=== PATIENT | male | born 1940 | race Caucasian/White ===

== ENCOUNTER 2018-03-06 11:34 | Observation (INO) | payer MEDICARE, OTHER ==
[2018-03-06] MEDS ORDERED: MECLIZINE HCL 12.5 MG TAB ONE (12:27)
[2018-03-06] MEDS ORDERED: TETANUS & DIPHTHERIA TOX,ADULT 0.5 ML VIAL ONE (12:28)
[2018-03-06] MEDS ORDERED: ONDANSETRON 4 MG/2 ML VIAL ONE (12:30)
[2018-03-06 12:54] LABS: Absolute Lymphocytes (CBC) 0.7 K/uL (0.7-4.9); Absolute Monocytes 0.5 K/uL (0.1-1.3); Absolute Neutrophil 5.9 K/uL (1.8-8.0); Basophils % 0.6 % (0-1.3); Eosinophils % 0.1 % (0-4.4); Lymphocytes % 9.6 % (15.3-44.8); MCH 32.6 pg (27.0-35.0); MCV 99.1 fL (80-100); Monocytes % 6.5 % (3.3-12.3); RBC Red Blood Cell Count 3.93 M/uL (4.33-5.43)
--- NOTE | 2018-03-06 13:18 | RAD REPORT ---
EXAM DESCRIPTION: CT - Head C Spine Mpr Wo Con - 03/06/2018 1:06 pm CLINICAL HISTORY: Syncope. Head and neck injury status post fall. Head and neck pain COMPARISON: None. TECHNIQUE: Computed axial tomography of the head and cervical spine was obtained. Sagittal and coronal reconstruction was performed. All CT scans are performed using dose optimization technique as appropriate and may include automated exposure control or mA/KV adjustment according to patient size. FINDINGS: An intracranial bleed is not seen. The ventricles are normal in caliber. An extra-axial fl uid collection is not noted.Fluid within the visualized sinuses and mastoids is not seen A cervical fracture is not visualized. No dislocation is noted. Loss of the normal lordosis may be se condary to muscle spasm. IMPRESSION: No acute intracranial abnormality is seen. A cervical fracture is not visualized. If the patient continues to have symptoms to suggest intracra nial /spinal cord pathology then MRI would be recommended
[2018-03-06 13:19] LABS: Protime INR 1.11
[2018-03-06 13:26] LABS: Bicarbonate 27 mEq/L (21-31); Glucose Level 142 mg/dL (65-120); Lipase 17 U/L (22-51); Potassium 4.1 mEq/L (3.6-5.0); Sodium Level 141 mEq/L (135-145)
[2018-03-06 13:32] LABS: ALT/SGPT 21 IU/L (10-60); AST/SGOT 27 IU/L (10-42); Alkaline Phosphatase 60 IU/L (42-121); BUN Blood Urea Nitrogen 23 mg/dL (6-20); Bilirubin Direct < 0.1 mg/dL (0-0.2); Bilirubin Total 0.3 mg/dL (0.3-1.2); Protein, Total 6.8 g/dL (6.0-8.3)
[2018-03-06 13:33] LABS: Albumin 3.6 g/dL (3.2-5.5); Creatine Phosphokinase 99 IU/L (22-269)
[2018-03-06 13:34] LABS: CKMB Creatine Kinase MB 2.3 ng/ml (0.3-4.0)
--- NOTE | 2018-03-06 13:35 | RAD REPORT ---
EXAM DESCRIPTION: Mike Single View03/06/2018 1:14 pm CLINICAL HISTORY: Chest pain COMPARISON: 2011 FINDINGS: The catrachito are mildly prominent. Otherwise, the lungs appear clear of acute infiltrate. The heart is normal size IMPRESSION: Mild prominence of the catrachito probably representing confluence of pulmonary vessels. Mild lymphadenopathy can also have this appearance. It is recommended that patient have a followup PA and lateral chest series in 6 weeks for re-evaluation.
--- NOTE | 2018-03-06 13:53 | EDPHYS ---
Physician Documentation [facility] Name: Jimbo Van Age: 77 yrs Sex: Male : 1940 Arrival Date: 03/06/2018 Time: 11:36 Bed 3 Private MD: ED Physician Galindo Araujo HPI: 03/06 12:19 This 77 yrs old Male presents to ER via EMS with complaints of Fall Injury. thomas 12:19 Details of fall: The patient fell from an upright position, while walking. Onset: The thomas symptoms/episode began/occurred this morning. Associated injuries: The patient sustained injury to the head, neck injury. Severity of symptoms: At their worst the symptoms were mild, moderate, in the emergency department the symptoms are unchanged. The patient has experienced similar episodes in the past, a few times. Historical: - Allergies: 11:37 Demerol; ae1 11:37 Cardizem; ae1 - Home Meds: 11:59 Pradaxa 150 mg oral cap 1 cap 2 times per day [Active]; enalapril maleate 20 mg Oral ae1 tab 1 tab 2 times per day [Active]; metoprolol succinate 100 mg daily [Active]; amiodarone 100 mg oral tab .5 tab once daily [Active]; levothyroxine 25 mcg tab 1 tab once daily [Active]; diclofenac oral 2-4 grams BID PRN for pain. oral [Active]; zolpidem 5 mg Oral tab 1 tab once daily [Active]; Furosemide Oral [Active]; - PMHx: 14:53 osteoarthritis; Atrial Fib; BPH; Anemia; ae1 - Immunization history:: Last tetanus immunization: > 10 years ago. - Social history:: Smoking status: Patient/guardian denies using tobacco. ROS: 12:19 Constitutional: Negative for fever, chills, and weight loss, Eyes: Negative for injury, thomas pain, redness, and discharge, ENT: Negative for injury, pain, and discharge, Neck: Negative for injury, pain, and swelling, Cardiovascular: Negative for chest pain, palpitations, and edema, Respiratory: Negative for shortness of breath, cough, wheezing, and pleuritic chest pain, Abdomen/GI: Negative for abdominal pain, nausea, vomiting, diarrhea, and constipation, Back: Negative for injury and pain, : Negative for injury, bleeding, discharge, and swelling, Skin: Negative for injury, rash, and discoloration, Psych: Negative for depression, anxiety, suicide ideation, homicidal ideation, and hallucinations, Allergy/Immunology: Negative for hives, rash, and allergies, Endocrine: Negative for neck swelling, polydipsia, polyuria, polyphagia, and marked weight changes, Hematologic/Lymphatic: Negative for swollen nodes, abnormal bleeding, and unusual bruising. 12:19 MS/extremity: Positive for laceration, of the right arm. 12:19 Neuro: Positive for headache, of the scalp. Exam: 12:19 Constitutional: This is a well developed, well nourished patient who is awake, alert, thomas and in no acute distress. Eyes: Pupils equal round and reactive to light, extra-ocular motions intact. Lids and lashes normal. Conjunctiva and sclera are non-icteric and not injected. Cornea within normal limits. Periorbital areas with no swelling, redness, or edema. ENT: Nares patent. No nasal discharge, no septal abnormalities noted. Tympanic membranes are normal and external auditory canals are clear. Oropharynx with no redness, swelling, or masses, exudates, or evidence of obstruction, uvula midline. Mucous membranes moist. Neck: Trachea midline, no thyromegaly or masses palpated, and no cervical lymphadenopathy. Supple, full range of motion without nuchal rigidity, or vertebral point tenderness. No Meningismus. Chest/axilla: Normal chest wall appearance and motion. Nontender with no deformity. No lesions are appreciated. Cardiovascular: Regular rate and rhythm with a normal S1 and S2. No gallops, murmurs, or rubs. Normal PMI, no JVD. No pulse deficits. Respiratory: Lungs have equal breath sounds bilaterally, clear to auscultation and percussion. No rales, rhonchi or wheezes noted. No increased work of breathing, no retractions or nasal flaring. Abdomen/GI: Soft, non-tender, with normal bowel sounds. No distension or tympany. No guarding or rebound. No evidence of tenderness throughout. Back: No spinal tenderness. No costovertebral tenderness. Full range of motion. Male : Normal genitalia with no discharge or lesions. Skin: Warm, dry with normal turgor. Normal color with no rashes, no lesions, and no evidence of cellulitis. MS/ Extremity: Pulses equal, no cyanosis. Neurovascular intact. Full, normal range of motion. Neuro: Awake and alert, GCS 15, oriented to person, place, time, and situation. Cranial nerves II-XII grossly intact. Motor strength 5/5 in all extremities. Sensory grossly intact. Cerebellar exam normal. Normal gait. Psych: Awake, alert, with orientation to person, place and time. Behavior, mood, and affect are within normal limits. 12:19 Head/face: Noted is contusion, swelling, that is mild, of the left side of the back of head, left occipital area, left base of the skull, right side of the back of head, right occipital area and right base of the skull. Vital Signs: 11:37 BP 164 / 79; Pulse 55; Resp 22; Temp 96.9(O); Pulse Ox 97% on R/A; Weight 86.18 kg (R); ae1 13:43 BP 175 / 96; Pulse 56; Resp 19; Pulse Ox 98% on R/A; ae1 13:57 Temp 97.3(O); ae1 14:50 BP 176 / 71; Pulse 57; Resp 15; Pulse Ox 97% on 2 lpm NC; ae1 17:05 BP 188 / 76; Pulse 59; Resp 18; Pulse Ox 100% on R/A; ae1 17:08 BP 180 / 85 Supine (man/); Pulse 58; Resp 17; Pulse Ox 100% on R/A; ae1 17:25 BP 168 / 77; Pulse 70; Resp 16; Pulse Ox 99% ; ae1 Chad Coma Score: 11:50 Eye Response: spontaneous(4). Verbal Response: oriented(5). Motor Response: obeys ae1 commands(6). Total: 15. Trauma Score (Adult): 11:50 Eye Response: spontaneous(1); Verbal Response: oriented(1); Motor Response: obeys ae1 commands(2); Systolic BP: > 89 mm Hg(4); Respiratory Rate: 10 to 29 per min(4); Chad Score: 15; Trauma Score: 12 MDM: 12:07 Patient medically screened. [facility] 12:21 Data reviewed: vital signs, nurses notes, lab test result(s), EKG, radiologic studies, [facility] CT scan, ultrasound. 03/06 12:18 Order name: Basic Metabolic Panel; Complete Time: 13:[address] [facility] 03/06 12:18 Order name: BNP; Complete Time: 13:[address] [facility] 03/06 12:18 Order name: CBC with Diff; Complete Time: 13:[address] [facility] 03/06 12:18 Order name: Ckmb; Complete Time: 13:[address] [facility] 03/06 12:18 Order name: CPK; Complete Time: 13:[address] [facility] 03/06 12:18 Order name: LFT's; Complete Time: 13:[address] [facility] 03/06 12:18 Order name: Magnesium; Complete Time: 13:[address] [facility] 03/06 12:18 Order name: PT-INR; Complete Time: 13:[address] [facility] 03/06 12:18 Order name: Ptt, Activated; Complete Time: 13:[address] [facility] 03/06 12:18 Order name: Troponin (emerg Dept Use Only); Complete Time: 13:[address] [facility] 03/06 12:18 Order name: Lipase; Complete Time: 13:[address] [facility] 03/06 12:18 Order name: Urine Culture [facility] 03/06 14:15 Order name: Urine Dipstick--Ancillary (enter results) 03/06 15:14 Order name: Urine Dipstick-Ancillary; Complete Time: 17:09 [facility] 03/06 12:18 Order name: XRAY Chest (1 view); Complete Time: 13:[address] [facility] 03/06 12:18 Order name: EKG; Complete Time: 12:[address] [facility] 03/06 12:18 Order name: Cardiac monitoring; Complete Time: 12:[address] [facility] 03/06 12:18 Order name: CT Head C Spine; Complete Time: 13:[address] [facility] 03/06 13:48 Order name: US Carotid Artery Bilateral [facility] 03/06 13:50 Order name: Echo w/ Doppler [facility] 03/06 14:09 Order name: MRI - Brain Wo Cont: dwi please [facility] 03/06 15:59 Order name: US; Complete Time: 17:09 [facility] 03/06 17:20 Order name: MRI [facility] 03/06 12:18 Order name: EKG - Nurse/Tech; Complete Time: 12:[address] [facility] 03/06 12:18 Order name: IV Saline Lock; Complete Time: 12:[address] [facility] 03/06 12:18 Order name: Labs collected and sent; Complete Time: 12:[address] [facility] 03/06 12:18 Order name: O2 Per Protocol; Complete Time: 12:[address] [facility] 03/06 12:18 Order name: O2 Sat Monitoring; Complete Time: 12:[address] [facility] 03/06 12:18 Order name: Urine Dipstick-Ancillary (obtain specimen); Complete Time: 13:[address] [facility] 03/06 12:18 Order name: Wound Care: right elbow; Complete Time: 14:[address] [facility] Administered Medications: 12:49 Drug: Meclizine 50 mg Route: PO; ae1 16:18 Follow up: Response: Other; No change to dizziness. 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 Exp: ae1 07/23/2019. Lot #: [id number]. } Route: IM; Site: left deltoid; 13:57 Follow up: Response: No adverse reaction ae1 13:15 Drug: Zofran 4 mg Route: IVP; Site: left forearm; ae1 13:43 Follow up: Response: Nausea is decreased ae1 14:21 Drug: NS 0.9% 500 ml Route: IV; Rate: bolus; Site: left forearm; ae1 15:42 Follow up: IV Status: Completed infusion ae1 15:10 Drug: NS 0.9% 1000 ml Route: IV; Rate: 125 ml/hr; Site: left antecubital; ae1 16:38 Follow up: IV Status: Infusion continued upon admission ae1 17:12 Drug: hydrALAZINE 5 mg Route: IV; Rate: per protocol; Site: left antecubital; ae1 17:26 Follow up: Response: Blood pressure is lowered; IV Status: Completed infusion ae1 17:27 Not Given (Physician Discretion): hydrALAZINE 10 mg IV at per protocol once ae1 Disposition: 03/06/18 13:53 Hospitalization ordered by Augusto Hope for Observation. Preliminary diagnosis are Syncope and collapse, Fall due to bumping against object, Superficial injury of head, Laceration without foreign body of right upper arm - superficial. - Bed requested for Telemetry/MedSurg (observation). - Status is Observation. ae1 - Condition is Fair. - Problem is new. - Symptoms have improved. UTI on Admission? No Signatures: Dispatcher [employer] EDMS Hiram, Maria Isabel, RN RN dw Van, Galindo, MD MD thomas Rajeev, Trever, RN RN ae1 Corrections: (The following items were deleted from the chart) 15:33 13:53 Hospitalization Ordered by Augusto Hope DO for Observation. Preliminary dw diagnosis is Syncope and collapse; Fall due to bumping against object; Superficial injury of head; Laceration without foreign body of right upper arm - superficial. Bed requested for Telemetry/MedSurg (observation). Status is Observation. Condition is Fair. Problem is new. Symptoms have improved. UTI on Admission? No. thomas 17:27 15:33 03/06/2018 13:53 Hospitalization Ordered by Augusto Hope DO for Observation. ae1 Preliminary diagnosis is Syncope and collapse; Fall due to bumping against object; Superficial injury of head; Laceration without foreign body of right upper arm - superficial. Bed requested for Telemetry/MedSurg (observation). Status is Observation. Condition is Fair. Problem is new. Symptoms have improved. UTI on Admission? No. dw
--- NOTE | 2018-03-06 13:53 | ER ---
Nurse's Notes [facility] Name: Jimbo Van Age: 77 yrs Sex: Male : 1940 Arrival Date: 03/06/2018 Time: 11:36 Bed 3 Private MD: Diagnosis: Syncope and collapse;Fall due to bumping against object;Superficial injury of head;Laceration without foreign body of right upper arm-superficial Presentation: 03/06 11:47 Presenting complaint: EMS states: EMS states patient "fainted" this morning around 0400 ae1 striking his head on the floor. Patient reports nausea and vomiting since. Skin tear to the right elbow. Transition of care: patient was not received from another setting of care. Onset of symptoms was March 06, 2018 at 04:00. Care prior to arrival: Medication(s) given: Normal saline infusion, 300 mls has infused. zofran 4 mg, IV initiated. 20 GA, in the left forearm, Glucose check: 185. 11:47 Method Of Arrival: EMS: [facility] ae1 11:47 Acuity: VICK 2 ae1 14:00 Initial Sepsis Screen: Does the patient meet any 2 criteria? Temp <36.0*C (96.8*F)) or ae1 > 38.3*C (100.4*F). No. Patient's initial sepsis screen is negative. Does the patient have a suspected source of infection? No. Patient's initial sepsis screen is negative. Historical: - Allergies: 11:37 Demerol; ae1 11:37 Cardizem; ae1 - Home Meds: 11:59 Pradaxa 150 mg oral cap 1 cap 2 times per day [Active]; enalapril maleate 20 mg Oral ae1 tab 1 tab 2 times per day [Active]; metoprolol succinate 100 mg daily [Active]; amiodarone 100 mg oral tab .5 tab once daily [Active]; levothyroxine 25 mcg tab 1 tab once daily [Active]; diclofenac oral 2-4 grams BID PRN for pain. oral [Active]; zolpidem 5 mg Oral tab 1 tab once daily [Active]; Furosemide Oral [Active]; - PMHx: 14:53 osteoarthritis; Atrial Fib; BPH; Anemia; ae1 - Immunization history:: Last tetanus immunization: > 10 years ago. - Social history:: Smoking status: Patient/guardian denies using tobacco. Screenin:17 Abuse screen: Denies threats or abuse. Nutritional screening: No deficits noted. ae1 Tuberculosis screening: No symptoms or risk factors identified. Fall Risk Fall in past 12 months (25 points). No secondary diagnosis (0 pts). IV access (20 points). Ambulatory Aid- None/Bed Rest/Nurse Assist (0 pts). Gait- Weak (10 pts.). Mental Status- Oriented to own ability (0 pts). Assessment: 11:45 General: Appears in no apparent distress. uncomfortable, Behavior is cooperative, ae1 anxious. Pain: Complains of pain in right parietal area. Neuro: Level of Consciousness is awake, alert, obeys commands, Oriented to person, place, time, situation. Cardiovascular: Patient's skin is warm and dry. Respiratory: Airway is patent Respiratory effort is even, unlabored, shallow, Respiratory pattern is regular, symmetrical. Derm: Wound noted palmar aspect of right forearm Wound is Skin tear, small amount of blood noted. 13:16 Reassessment: Returned from CT reports mild nausea returning, administered ordered ae1 medication. 14:48 Reassessment: IV to the left wrist infiltrated, patient reports pain above insertion ae1 site. Small amount of swelling noted. IV discontinued. 16:21 Reassessment: called 4th floor to give report, spoke to Nicole Rivera states she will ae1 have receiving nurse return call. Will continue to monitor. 16:35 Reassessment: Called report to AVIS Colon via telephone .Registration notified that ae1 report has been called. Vital Signs: 11:37 BP 164 / 79; Pulse 55; Resp 22; Temp 96.9(O); Pulse Ox 97% on R/A; Weight 86.18 kg (R); ae1 13:43 BP 175 / 96; Pulse 56; Resp 19; Pulse Ox 98% on R/A; ae1 13:57 Temp 97.3(O); ae1 14:50 BP 176 / 71; Pulse 57; Resp 15; Pulse Ox 97% on 2 lpm NC; ae1 17:05 BP 188 / 76; Pulse 59; Resp 18; Pulse Ox 100% on R/A; ae1 17:08 BP 180 / 85 Supine (man/); Pulse 58; Resp 17; Pulse Ox 100% on R/A; ae1 17:25 BP 168 / 77; Pulse 70; Resp 16; Pulse Ox 99% ; ae1 Chad Coma Score: 11:50 Eye Response: spontaneous(4). Verbal Response: oriented(5). Motor Response: obeys ae1 commands(6). Total: 15. Trauma Score (Adult): 11:50 Eye Response: spontaneous(1); Verbal Response: oriented(1); Motor Response: obeys ae1 commands(2); Systolic BP: > 89 mm Hg(4); Respiratory Rate: 10 to 29 per min(4); [place] Score: 15; Trauma Score: 12 ED Course: 11:36 Patient arrived in ED. ae1 11:45 Trever Boo, AVIS is Primary Nurse. ae1 11:50 Triage completed. ae1 11:50 Arm band placed on left wrist. ae1 11:50 Bed in low position. Call light in reach. Side rails up X2. Adult w/ patient. Cardiac ae1 monitor on. Pulse ox on. NIBP on. Warm blanket given. 12:00 Patient maintains SpO2 saturation greater than 95% on room air. Thermoregulation: warm ae1 blanket given to patient. 12:07 Galindo Araujo MD is Attending Physician. thomas 12:10 EKG done, by engineering technician parking. dt2 12:[address] nj 13:07 CT Head C Spine In Process Unspecified. EDMS 13:08 CT completed. Patient tolerated procedure well. Patient moved back from CT. nj 13:11 X-ray completed. Portable x-ray completed in exam room. Patient tolerated procedure ml well. 13:14 XRAY Chest (1 view) In Process Unspecified. EDMS 13:50 Augusto Hope DO is Hospitalizing Provider. thomas 13:58 No provider procedures requiring assistance completed. Maintain EMS IV. Dressing ae1 intact. Good blood return noted. Site clean \\T\\ dry. Gauge \\T\\ site: 20 Left AC.. 14:36 Echocardiogram with Doppler done by wind turbine technician. tc 14:49 Inserted saline lock: 22 gauge in left antecubital area, using aseptic technique. IV ae1 discontinued, intact, bleeding controlled, Pressure dressing applied. 15:06 Radiology exam delayed due to attempted to get patient at 1415. pt was getting some ka type of test. attempted to get pt at 1500. pt was getting ultrasound. 15:13 Ultrasound completed. Patient tolerated well. cy 16:20 Patient moved to MRI via stretcher. ae1 17:19 MRI completed. Patient tolerated well. Patient moved back from MRI. em2 Administered Medications: 12:49 Drug: Meclizine 50 mg Route: PO; ae1 16:18 Follow up: Response: Other; No change to dizziness. 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 Exp: ae1 07/23/2019. Lot #: [id number]. } Route: IM; Site: left deltoid; 13:57 Follow up: Response: No adverse reaction ae1 13:15 Drug: Zofran 4 mg Route: IVP; Site: left forearm; ae1 13:43 Follow up: Response: Nausea is decreased ae1 14:21 Drug: NS 0.9% 500 ml Route: IV; Rate: bolus; Site: left forearm; ae1 15:42 Follow up: IV Status: Completed infusion ae1 15:10 Drug: NS 0.9% 1000 ml Route: IV; Rate: 125 ml/hr; Site: left antecubital; ae1 16:38 Follow up: IV Status: Infusion continued upon admission ae1 17:12 Drug: hydrALAZINE 5 mg Route: IV; Rate: per protocol; Site: left antecubital; ae1 17:26 Follow up: Response: Blood pressure is lowered; IV Status: Completed infusion ae1 17:27 Not Given (Physician Discretion): hydrALAZINE 10 mg IV at per protocol once ae1 Intake: Output: 13:59 Urine: 400ml (Voided); Total: 400ml. ae1 Outcome: 13:53 Decision to Hospitalize by Provider. thomas 17:17 Condition: stable ae1 17:25 Admitted to Tele accompanied by tech, family with patient, via stretcher, room 407, ae1 with chart, Report called to AVIS Colon 17:25 Instructed on the need for admit. 17:27 Patient left the ED. ae1 Signatures: Dispatcher [employer] EDMS Galindo Araujo MD MD cha Lopez, Melissa ml Montes, Enrique em2 Genesis Cueva, senior project coordinator EKG Ttc Lina Jean Andrea, AVIS RN ae1 Jose A, Candice Keys Danielle 2
[2018-03-06] MEDS ORDERED: ONDANSETRON 4 MG/2 ML VIAL IV PRN (14:11)
[2018-03-06] MEDS ORDERED: ACETAMINOPHEN 500 MG TAB PO PRN (14:11)
--- NOTE | 2018-03-06 14:11 | P.HP ---
Certification for Inpatient Patient admitted to: Observation With expected LOS: <2 Midnights Patient will require the following post-hospital care: Other (May need Home health/Physical therapy at discharge) Practitioner: I am a practitioner with admitting privileges, knowledge of patient current condition, hospital course, and medical plan of care. Services: Services provided to patient in accordance with Admission requirements found in Title 42 Section 412.3 of the Code of Federal Regulations Patient History Date of Service: 03/06/18 Primary Care Provider: Dr. Blake; Cardiology-Dr. Jenkins Reason for admission: Syncope, fall History of Present Illness: 77 yo CM presented to the ER with syncope and fall. He woke up at 4 am to go to the bathroom. Upon rising, he had a syncopal episode. He fell back and hit his head. No chest pain or SOB was noted. No bleeding noted. No SOB noted. He was sent to the ER for evaluation. In the ER he was reporting a headache. No further syncope noted. CT head showed no acute findings. CXR showed infiltate but some lymphadenopathy was noted. WBC 7.1, H.H stable. K 4.1, Creatinine 1.23, GFR-57. Patient was in atrial fibrillation with rate controlled. He was slightly hypertensive. I was asked to admit the patient. He reports that new medication Lasix was increased recently. He was told to decrease it if his edema improved. He had a syncopal episode last year that was related to orthostatic changes. BP medication was adjusted at that time. - Past Medical/Surgical History Diabetic: No -: HTN -: Hypothyroidism -: Atrial fibrillation, Chronic anticoagulation -: BPH -: Hx of Syncope Past Surgical History: Patient denies surgical history Psychosocial/ Personal History: Patient for 59 yrs, Children-4, Retired. - Family History Father -: Heart disease - Social History Smoking Status: Never smoker Alcohol use: Yes CD- Drugs: No Caffeine use: No Place of Residence: Home Review of Systems General: Weakness, Malaise Eyes: Unremarkable ENT: Unremarkable Respiratory: Unremarkable Cardiovascular: Light Headedness, As per HPI Gastrointestinal: Unremarkable Genitourinary: Unremarkable Musculoskeletal: As per HPI Integumentary: Unremarkable Neurological: As per HPI Lymphatics: Unremarkable Physical Examination - Physical Exam General: Alert, In no apparent distress, Oriented x3, Cooperative HEENT: Atraumatic, Normocephalic, PERRLA, Mucous membr. moist/pink Neck: Supple, No Thyromegaly Respiratory: Clear to auscultation bilaterally, Normal air movement Cardiovascular: Irregular heart rate/rhythm (atrial fibrillation) Gastrointestinal: Normal bowel sounds, Soft and benign, Non-distended, No tenderness, No masses, No rebound, No guarding Musculoskeletal: No erythema, No tenderness, No warmth Integumentary: No tenderness/swelling, No erythema, No warmth, No cyanosis Neurological: Normal speech, Normal strength at 5/5 x4 extr, Normal tone, Normal affect - Studies Laboratory Data (last 24 hrs) 03/06/18 12:40: PT 13.1 H, INR 1.11, APTT 38.5 H 03/06/18 12:40: WBC 7.1, Hgb 12.8 L, Hct 39.0 L, Plt Count 247 03/06/18 12:40: B-Natriuretic Peptide 63 03/06/18 12:40: Sodium 141, Potassium 4.1, BUN 23 H, Creatinine 1.23, Glucose 142 H, Magnesium 2.0, Total Bilirubin 0.3, AST 27, ALT 21, Alkaline Phosphatase 60, Lipase 17 L Assessment and Plan - Problems (Diagnosis) (1) Syncope Current Visit: Yes Status: Acute Plan: CT head negative. Will order MRI brain to rule out CVA. Suspect related to orthostatic change. Will hold Lasix. Will provide IV fluids. Will continue his other medication. Will monitor lab and BP. Will have PT assess. Cardiology consult. Anticipate DC home tomorrow if better. Qualifiers: Syncope type: unspecified Qualified Code(s): R55 - Syncope and collapse (2) Fall Current Visit: Yes Status: Acute Plan: Continue as above Qualifiers: Encounter type: initial encounter Qualified Code(s): W19.XXXA - Unspecified fall, initial encounter (3) Headache Current Visit: Yes Status: Acute Plan: Secondary to above. Will monitor. MRI brain ordered. (4) HTN (hypertension) Current Visit: Yes Status: Chronic Plan: Will continue meds. Will monitor for orthostatic changes. Will need to orthostatics in the am. Qualifiers: Hypertension type: essential hypertension Qualified Code(s): I10 - Essential (primary) hypertension (5) Atrial fibrillation Current Visit: Yes Status: Chronic Plan: Continue with meds. Qualifiers: Atrial fibrillation type: chronic Qualified Code(s): I48.2 - Chronic atrial fibrillation (6) Chronic anticoagulation Current Visit: Yes Status: Chronic Plan: Continue with meds (7) CHF (congestive heart failure) Current Visit: Yes Status: Chronic Plan: Will check ECHO. Will hold Lasix due to Syncope. Qualifiers: Heart failure type: systolic Heart failure chronicity: chronic Qualified Code(s): I50.22 - Chronic systolic (congestive) heart failure Discharge Plan: Home Plan to discharge in: 24 Hours - Advance Directives Does patient have a Living Will: No Does patient have a Durable POA for Healthcare: No - Code Status/Comfort Care Code Status Assessed: Yes Time Spent Managing Pts Care (In Minutes): 55
[2018-03-06] MEDS ORDERED: NA CHLORIDE 0.9% 1,000 ML ONE (14:14)
[2018-03-06] MEDS: NA CHLORIDE 0.9% 1,000 ML IV SCH ×2 (15:00→20:21)
[2018-03-06 15:13] LABS: Urine Blood NEGATIVE (NEG); Urine Glucose NEGATIVE (NEG); Urine Protein 1+ (NEG); Urine pH 5.5 (5.0-7.0)
--- NOTE | 2018-03-06 15:49 | EKG ---
Test Date: 2018-03-06 Test Time: 12:00:51 [employer] Instructor: MICHOACANO MEASUREMENT RESULTS: Intervals: Rate: 54 OH: 176 QRSD: 96 QT: 488 QTc: 462 Pigeon: P: 58 OH: 176 QRS: 25 T: 29 INTERPRETIVE STATEMENTS: Sinus bradycardia Otherwise normal ECG Compared to ECG 11/26/1999 08:36:00 Sinus rhythm no longer present Electronically Signed On 03-06-18 15:48:31 CDT by Montrell Wang
--- NOTE | 2018-03-06 15:59 | RAD REPORT ---
EXAM DESCRIPTION: VASCarotid Artery Bilateral03/06/2018 3:40 pm CLINICAL HISTORY: Syncope COMPARISON: None FINDINGS: The velocity of the right internal carotid artery equals 97 cm/sec. The right ICA/CCA rati o 1.7 The velocity of the left internal carotid artery equals 164 cm/sec. The left ICA/CCA ratio 1.3 No flow is visualized within the mid right internal carotid artery. The carotid arteries are tortuous . Mild to moderate plaque is seen within the carotid arteries. . The vertebral arteries demonstrate antegrade flow IMPRESSION: Mild to moderate plaque is seen within the internal carotid arteries. No flow was visualized within the mid right internal carotid artery. I suspect this is secondary to t echnical factors rather than occlusion. Elevated velocity of the left internal carotid artery probably secondary to the artery being tortuous rather than a significant stenosis. However this is not certain appear MRA of the neck is recommended for further evaluation
[2018-03-06] MEDS ORDERED: HYDRALAZINE HCL 20 MG/ML VIAL ONE (17:12)
--- NOTE | 2018-03-06 17:20 | RAD REPORT ---
EXAM DESCRIPTION: MRI - Brain Wo Cont - 03/06/2018 4:55 pm CLINICAL HISTORY: Syncope, head injury COMPARISON: 03/06/2018 TECHNIQUE: Multi-sequence, multiplanar MR imaging of the brain was performed without contrast. FINDINGS: No intracranial hemorrhage, hydrocephalus or extra-axial fluid collections.Mild generalize d brain atrophy is present with moderate periventricular and deep white matter chronic microvascular ischemic changes. No edema or shift of midline structures. No findings to suspect brain mass. DWI is negative for acute CVA. Midline structures are normally formed. Mastoid air cells and paranasal sinuses are clear. IMPRESSION: No acute intracranial abnormality. No acute CVA. Moderate chronic microvascular ischemic changes are present
--- NOTE | 2018-03-06 17:35 | ECHO ---
HEIGHT: ft in WEIGHT: lb oz DATE OF STUDY: 03/06/[address]: Galindo Araujo MD 2-DIMENSIONAL: YES M.MODE: YES DOPPLER: YES COLOR FLOW: YES TDS: PORTABLE: DEFINITY: BUBBLE STUDY: DIAGNOSIS: DIZZINESS CARDIAC HISTORY: CATHERIZATION: NO SURGERY: NO PROSTHETIC VALVE: NO PACEMAKER: NO MEASUREMENTS (cm) DIASTOLIC (NORMALS) SYSTOLIC (NORMALS) IVSd 0.9 (0.6-1.2) LA Diam 3.1 (1.9-4.0) LVEF 63% LVIDd 6.0 (3.5-5.7) LVIDs 3.9 (2.0-3.5) %FS 35% LVPWd 0.9 (0.6-1.2) Ao Diam 3.1 (2.0-3.7) 2 DIMENSIONAL ASSESSMENT: RIGHT ATRIUM: NORMAL LEFT ATRIUM: DILATED RIGHT VENTRICLE: NORMAL LEFT VENTRICLE: NORMAL TRICUSPID VALVE: NORMAL MITRAL VALVE: MITRAL ANNULAR CALCIFICATION PULMONIC VALVE: NORMAL AORTIC VALVE: NORMAL PERICARDIAL EFFUSION: NONE AORTIC ROOT: NORMAL LEFT VENTRICULAR WALL MOTION: PARADOXICAL SEPTAL MOTION DOPPLER/COLOR FLOW: MILD MITRAL, AORTIC AND TRICUSPID REGURGITATION. COMMENTS: MILD MITRAL, AORTIC AND TRICUSPID REGURGITATION. PARADOXICAL SEPTAL MOTION. NORMAL EJECTION FRACTION. LEFT VENTRICULAR DILATION. MITRAL ANNULAR CALCIFICATION. TECHNOLOGIST: RADHA SINGH
[2018-03-06 19:41] LABS: CKMB Creatine Kinase MB 3.7 ng/ml (0.3-4.0)
[2018-03-06] MEDS: HYDRALAZINE HCL 25 MG TABLET PO SCH (20:20)
[2018-03-06] MEDS: ENALAPRIL 10 MG TAB PO SCH (20:20)
[2018-03-06] MEDS: TAMSULOSIN 0.4 MG SR CAP PO SCH (20:21)
[2018-03-06] MEDS: DABIGATRAN 150 MG CAP PO SCH (20:21)
[2018-03-07 05:24] LABS: Absolute Lymphocytes (CBC) 1.7 K/uL (0.7-4.9); Absolute Neutrophil 4.4 K/uL (1.8-8.0); Basophils % 0.6 % (0-1.3); Eosinophils % 2.2 % (0-4.4); Hematocrit 37.8 % (39.6-49.0); Lymphocytes % 23.3 % (15.3-44.8); MCH 32.6 pg (27.0-35.0); MCV 99.9 fL (80-100); MPV 10.5 fL (7.6-11.3); Monocytes % 13.5 % (3.3-12.3); RBC Red Blood Cell Count 3.78 M/uL (4.33-5.43)
[2018-03-07 05:55] LABS: Magnesium 2.1 mg/dL (1.8-2.5); Potassium 4.4 mEq/L (3.6-5.0)
[2018-03-07] MEDS: METOPROLOL XL 100 MG TAB PO SCH (06:05)
[2018-03-07] MEDS: LEVOTHYROXINE SOD 0.025 MG TAB PO SCH (06:06)
[2018-03-07] MEDS: TRAMADOL HCL 50 MG TAB PO PRN ×2 (06:06→18:45)
[2018-03-07] MEDS: PANTOPRAZOLE 40MG TABLET PO SCH (06:06)
[2018-03-07 06:08] LABS: CKMB Creatine Kinase MB 2.7 ng/ml (0.3-4.0)
[2018-03-07] MEDS: DABIGATRAN 150 MG CAP PO SCH ×2 (09:17→21:29)
[2018-03-07] MEDS: AMIODARONE HCL 200 MG TAB PO SCH (09:18)
[2018-03-07] MEDS: ENALAPRIL 10 MG TAB PO SCH ×2 (09:18→21:27)
[2018-03-07] MEDS ORDERED: HYDRALAZINE HCL 20 MG/ML VIAL IV PRN (14:38)
--- NOTE | 2018-03-07 16:08 | RAD REPORT ---
EXAM DESCRIPTION: RAD - Elbow Right 2 View - 03/07/2018 3:13 pm CLINICAL HISTORY: Fall, elbow pain COMPARISON: None. FINDINGS: No fracture is confirmed. There does appear to be some fluid in the joint space which coul d be secondary to the moderate arthritic change seen. There is spurring at the anterior margins of th e elbow joint. No pathologic bone process. There is no dislocation or periosteal reaction noted. No f oreign body or other soft tissue abnormality. IMPRESSION: Moderate degenerative change and suspected small quantity of fluid in the joint space. No fracture confirmed. Joint fluid may be secondary to degenerative change. Repeat imaging in 7 days recommended if there are continued symptoms concerning for fracture.
--- NOTE | 2018-03-07 16:10 | CON ---
Date of Consultation: 03/06/2018 The patient is a 77-year-old, who was admitted to Dr. Hope on 03/06/2018 because of syncope, atrial fibrillation, and fall. History Of Present Illness: Mr. Van is 77. Sees at [facility]. He has chronic atrial fibrillation for which he has taken amiodarone and Pradaxa. He has hypertension for which he is taking hydralazine, Vasotec, and Lasix. He also has a history of anemia, hypothyroid ism, and benign prostatic hypertrophy for which he takes Flomax. He had an episode of falling, weakn ess, and syncope. Workup echocardiogram showed aortic regurgitation, left ventricular dilatation, nor mal ejection fraction. His carotid and CT of his head and MRI of bone was negative. EKG shows sinus bradycardia. Chest x-ray shows some hilar fullness, six-month followup recommended. Past Medical History: As stated above. Allergies: TO AND CARDIZEM. Review of Systems: Negative. Social History: Negative. Family History: Negative. Medications: Amiodarone, Pradaxa, Vasotec, Lasix, hydralazine, Synthroid, and Flomax. Physical Examination: Vital Signs: Stable and afebrile. HEENT: Negative. Neck: Supple without any bruit, lymphadenopathy, JVD, or thyromegaly. Chest: Clear to auscultation and percussion. Cardiac: Revealed sinus bradycardia. No murmurs, gallops, or rubs. Abdomen: Benign. Extremities: Revealed no clubbing, cyanosis, or edema. Diagnostic Data: As stated earlier. Impression And Plan: 1.Syncope secondary to orthostatic hypotension. I suggest discontinuing the Lasix and take Flomax e very other day. 2.Atrial fibrillation, on amiodarone and Pradaxa. 3.Hypertension, controlled. 4.Hypothyroidism, controlled. One of his blood pressure reading the hydralazine and Vaso allison may be appropriate. He had a right shoulder injury that apparently has not been x-rayed accordin g to him and we recommended an x-ray of that. No further cardiac workup at this point. NB/MODL Voice ID: [id number] Report ID: [id number]
[2018-03-07] MEDS: NA CHLORIDE 0.9% 1,000 ML IV SCH (17:40)
[2018-03-07] MEDS: FUROSEMIDE 20 MG TABLET PO SCH (18:20)
--- NOTE | 2018-03-07 20:25 | PN ---
Subjective: The patient doing well today, He continues to have difficulty moving his arm. He is not able to extend his right arm at the elbow level fully. No chest pain. No abdominal pain. No nausea or vomiting. No headache. No blurred vision. He looks comfortable otherwise. Objective: Currently vital signs: Blood pressure is very high at 186/84, respiratory rate 18, pulse 56, temperature 97.9. He is fully alert, oriented x3. Does not look in any distress. HEENT: Atraumatic, normocephalic. PERRLA. Oral mucosa is moist. Neck: Supple. No JVD. No carotid bruits. Chest: Clear to auscultation. Good air entry. Heart: Regular rate and rhythm. S1, S2 normal. No gallop or murmur. Abdomen: Soft, nontender. No masses. No hepatosplenomegaly. Positive bowel sounds. Extremities: No clubbing, no cyanosis or edema. No calf tenderness. Right arm with right elbow dressing, some ulceration under the dressing but limited range of movement. Laboratory Data: Currently labs today CBC showed within normal except for hemoglobin 12.3. Chemistry within normal except for BUN of 21, triglyceride 189, cholesterol 254, LDL 173. Cardiac enzymes all within normal. Echocardiogram done yesterday showed mild mitral, aortic and tricuspid regurgitation . Normal ejection fraction. Left ventricular dilation. Mitral annular calcification. Plan: 1. Syncopal episode. Workup so far negative. CT of the head was negative. MRI of the brain negative. Carotid Doppler was inconclusive with mild-to- moderate plaque in the internal carotid arteries. Abn velocity of the left internal carotid artery secondary to vessel being torturous. MRA is recommended but that can be done as outpatient. Cardiology consult pending but Dr. Monae apparently told patient he think he may be overmedicated and that caused him to have hypotensive episodes. 2. Headache, resolved. 3. Hypertension. Not well controlled. We will have to resume his home medication. Atrial fibrillation is rate controlled. 4. Chronic anticoagulation. We will continue with Dabigatran 150 mg twice a day. 5. Enlarged prostate. On Flomax maybe that was causing his orthostatic hypotension and need discuss with neurology may be to consider removing or substituting it. 6. Congestive heart failure, echo noted. The patient off Lasix but his blood pressure is very high. We will probably resume Lasix today unless Cardiology objecting. 7. No DVT prophylaxis needed, patient on anticoagulation. 8. Right elbow limited range of motion. We will proceed x-ray. If any fractures noted we will consult orthopedics. 9. Discharge plan hopefully in a.m. if no other issues. We will obtain physical therapy also eval today. SHER/SEDA Voice ID: [id number] Report ID: [id number] HUBER
[2018-03-07] MEDS: TAMSULOSIN 0.4 MG SR CAP PO SCH (21:29)
[2018-03-07] MEDS: HYDRALAZINE HCL 25 MG TABLET PO SCH (21:29)
[2018-03-08] MEDS: METOPROLOL XL 100 MG TAB PO SCH (06:00)
[2018-03-08] MEDS: LEVOTHYROXINE SOD 0.025 MG TAB PO SCH (06:06)
[2018-03-08] MEDS: PANTOPRAZOLE 40MG TABLET PO SCH (06:06)
[2018-03-08 06:21] LABS: Absolute Lymphocytes (CBC) 2.2 K/uL (0.7-4.9); Absolute Monocytes 0.9 K/uL (0.1-1.3); Absolute Neutrophil 2.9 K/uL (1.8-8.0); Basophils % 0.9 % (0-1.3); Eosinophils % 5.6 % (0-4.4); Hematocrit 37.8 % (39.6-49.0); Lymphocytes % 33.8 % (15.3-44.8); MCH 32.5 pg (27.0-35.0); MCV 100.3 fL (80-100); MPV 10.2 fL (7.6-11.3); Monocytes % 13.5 % (3.3-12.3); RBC Red Blood Cell Count 3.77 M/uL (4.33-5.43)
[2018-03-08] MEDS: NA CHLORIDE 0.9% 1,000 ML IV SCH (06:23)
[2018-03-08 06:28] LABS: Magnesium 1.9 mg/dL (1.8-2.5); Potassium 4.2 mEq/L (3.6-5.0)
[2018-03-08] MEDS: AMIODARONE HCL 200 MG TAB PO SCH (09:32)
[2018-03-08] MEDS: DABIGATRAN 150 MG CAP PO SCH (09:32)
[2018-03-08] MEDS: ENALAPRIL 10 MG TAB PO SCH (09:34)
[2018-03-08] MEDS: FUROSEMIDE 20 MG TABLET PO SCH (09:35)
[2018-03-08] MEDS: TRAMADOL HCL 50 MG TAB PO PRN (09:37)
--- NOTE | 2018-03-08 19:10 | DS ---
Date of Discharge: 03/08/2018 Discharge Diagnoses: 1.Syncopal episode most likely secondary to orthostatic hypotension. 2.Hypertension. 3.Congestive heart failure. 4.Fall with right elbow injury. 5.Benign prostatic hyperplasia. 6.Atrial fibrillation. Consult: Cardiology. Procedure: Echocardiogram, brain MRI, carotid Doppler, head and cervical spine CT which did not show any signs of cervical fractures or intracranial or spinal pathology. History Of Present Illness: Please refer to Dr. Hope admission note. Hospital Course: Initially, the patient presented with fall and syncopal episode. MRI of the brain done, did not show any acute intracranial abnormalities or CVA signs. Carotid Doppler done and showe d mild elevation in velocity of the left internal carotid artery secondary to the tortuous nature of the artery, not stenosis. Today still recommend MRA of the neck for complete evaluation. Echocardio gram showed mild mitral, aortic and tricuspid regurgitation. Paradoxical septal motion. Normal ejec tion fraction. Left ventricular dilatation with moderate annular calcification. Cardiology consult requested and Dr. Monae suggested to stop the patient's Lasix and to have Flomax every other day. I compensate for that by continuing Vasotec and hydralazine and primary care physician to titrate john t up if blood pressure is not well controlled off Lasix. Secondary to the fall the patient injured h is left elbow on x-ray done and the x-ray showed moderate degenerative changes. Suspect a small alexey tity of fluid in the joint space. They recommend to repeat x-ray in 7 days if symptoms still there. The patient had issues with range of motion. Orthopedic consult requested and they advised to follo w up in the office in 10 days and use a sling in the meantime and [id number] pain medications. The patient will be discharged today in stable condition. To follow up with the primary care physic laura in 1 week to adjust blood pressure medication if needed. Will need to follow up with Cardiology as advised and follow up with Ortho in 10 days. We will need to have MRI of the neck to complete the evaluation of his carotid arteries as outpatient. Discharge Condition: Stable. Discharge Diet: Cardiac. Discharge Followup: With primary care physician in 1 week. He need MRI of the neck as outpatient. The patient will follow up with Orthopedic in 10 days and Cardiology in 10 days. Discharge Medications: Flomax 0.4 mg every other day instead of every day, Tylenol 500 mg as needed, amiodarone 200 mg daily, Pradaxa 150 mg twice a day, diclofenac mg orally twice a day, Va sotec 10 mg twice a day, hydralazine 25 mg daily, Synthroid 25 mcg once a day, metoprolol 100 mg vilma y, Kenalog cream as needed, Ambien 5 mg at bedtime, tramadol 50 mg as needed twice a day. Objective: Vital Signs: Today vital signs for discharge blood pressure at 139/69, respiratory rate 20, pulse 62, temperature 97.2. General: He is fully alert and oriented x3. Does not look in any distress. HEENT: Atraumatic, normocephalic. PERRLA. Oral mucosa is moist. Neck: Supple. No JVD. No carotid bruits. Chest: Clear to auscultation. Good air entry. Heart: Regular rate and rhythm. No gallop or murmur. Abdomen: Soft, nontender. No masses. No hepatosplenomegaly. Positive bowel sounds. Extremities: No clubbing or cyanosis. He has some ecchymosis. Left elbow in dressing. Neuro: Exam grossly intact. SHER/SEDA Voice ID: [id number] Report ID: [id number]
--- NOTE | 2018-03-08 20:28 | CON ---
Consultation is by Dr. Brenden Boyle regarding right elbow complaints. History Of Present Illness: This 77-year-old male sustained a fall from an upright position while wa lking on the morning of 03/06/2018. He had impact to his head, neck and right upper extremity. The patient was admitted for observation with preliminary diagnosis of syncope and collapse with fall due to bumping against an object, superficial injury of head, laceration without foreign body. The mir ent had continued complaints with his right elbow and consultation has been requested for Orthopedic evaluation. Allergies: THE PATIENT IS ALLERGIC TO DEMEROL AND CARDIZEM. Home Medications: Significantly include Pradaxa. Other medications were reviewed. The patient also takes diclofenac for arthritis symptoms. Past Medical History: Positive for osteoarthritis, atrial fibrillation, BPH, and anemia. Social History: The patient does not use tobacco. Review of Systems: A 10 system review was noncontributory. Musculoskeletal: See HPI. Physical Examination: General: This is a well-developed, well-nourished, 77-year-old male who has a large bandage wrapped around the proximal forearm and above the elbow evidently for stabilization of the bandage. The mir ent impacted the right elbow in his fall, falling on his right side and suffered a skin abrasion. Th is is a parchment skin type of friction rub associated with impact. The bandage was unwrapped, and t he wound was inspected and found to be completely superficial. The patient is concerned because he c annot fully extend the arm since his trauma. His range of motion is good for supination and pronatio n. He can extend to 30 degrees from full extension and flex to 110 degrees. Neurovascular exam is i ntact. X-rays were reviewed taken on 03/07/2018 showing right elbow mild degenerative changes and a suspected small quantity of fluid in the joint space. No fracture was confirmed. The joint fluid ac cumulation was felt possibly to be secondary to degenerative changes that included anterior spurring of the articular margins of the elbow. There was no dislocation noted and recommendation was to repe at the x-ray in 7-10 days if symptoms continued with concern for fracture. Assessment: This patient has suffered a contusion to the right elbow. I have explained to him that a fluid accumulation within the joint can limit motion temporarily. The fluid would be absorbed over 2-4 weeks and range of motion generally returns as the hydraulic force within the joint diminishes. Plan: This patient will be placed in an arm sling for comfort and will be available for discharge to day with regard to his elbow complaints. He will be appointed to return to my office for followup ev aluation and re-x-ray right elbow in 7-10 days. GARRETT/SEDA Voice ID: [id number] Report ID: [id number]
== END 2018-03-08 14:00 | disposition home or self-care (01) ==
LOC: ER 11:34 → ERHOLD 13:54 → 4TH 17:13
PROVIDERS: ADMIT Internal Medicine; ATTEND Family Medicine
DX: I95.1 Orthostatic hypotension (principal); I10 Essential (primary) hypertension; E03.9 Hypothyroidism, unspecified; I48.2 Chronic atrial fibrillation; N40.0 Benign prostatic hyperplasia without lower urinary tract symptoms; R55 Syncope and collapse; R51 Headache; Z79.01 Long term (current) use of anticoagulants; I50.22 Chronic systolic (congestive) heart failure; M19.90 Unspecified osteoarthritis, unspecified site; S50.01XA Contusion of right elbow, initial encounter; W19.XXXA Unspecified fall, initial encounter
CPT/HCPCS: 36415 ×2; 70450; 70551; 71045; 72125; 73070; 80048 ×3; 80061; 80076; 81003; 82550 ×3; 82553 ×3; 83690; 83735 ×3; 83880; 84484 ×3; 85025 ×3; 85610; 85730; 87086; 87088; 90714; 93005; 93306; 93880; 97163; 99285; G0378 ×2; J0360 ×2; J2405; J7030 ×4